=== PATIENT | male | born 1940 | race Caucasian/White ===

== ENCOUNTER 2023-12-24 11:06 | Emergency (ER) | payer MEDICARE, BC ==
[~2023-12-24] VITALS: Ht 188 cm; Wt 89.8 kg
[2023-12-24 11:07] VITALS: TEMP 97.7
[2023-12-24] MEDS ORDERED: ALLO100T PO (11:32)
[2023-12-24] MEDS ORDERED: DONE-1 PO (11:33)
[2023-12-24] MEDS ORDERED: ROSU5TAB40 PO (11:33)
[2023-12-24] MEDS ORDERED: RIVA1CAP5 PO (11:34)
[2023-12-24] MEDS: diazePAM 10 MG TAB PO ONE (15:32)
[2023-12-24] MEDS: IBUPROFEN 600MG TAB PO ONE (15:32)
[2023-12-24] MEDS ORDERED: ISOVUE-370 76% 100ML VIAL As Ordered ONE (16:02)
[2023-12-24 16:28] LABS: HEMATOCRIT 42.7 % (42.0-52.0); HEMOGLOBIN 14.1 g/dl (13.5-17.5); MEAN CORPUSCULAR HEMOGLOBIN 30.8 pg (27.0-33.0); MEAN CORPUSCULAR VOLUME 93.2 fl (80.0-96.0); PLATELET COUNT, AUTOMATED 288 10^3/uL (150-450); RED BLOOD COUNT 4.58 10^6/uL (4.30-6.10); WHITE BLOOD COUNT 10.2 10^3/uL (4.0-10.0)
[2023-12-24 16:35] LABS: BLOOD UREA NITROGEN 16 MG/DL (9-23); CARBON DIOXIDE LEVEL 30 MMOL/L (20-31); CHLORIDE LEVEL 104 MMOL/L (98-107); CREATININE FOR GFR 1.03 MG/DL (0.70-1.30); GLOMERULAR FILTRATION RATE > 60.0 (>35); GLUCOSE, FASTING 111 MG/DL (74-106); SODIUM LEVEL 139 MMOL/L (136-145)
[2023-12-24] MEDS ORDERED: CYCL5TAB PO (17:25)
[2023-12-24] MEDS ORDERED: IBUP-1022 PO (17:25)
[2023-12-24 17:39] VITALS: BP 125/87; O2SAT 99
== END 2023-12-24 17:40 | disposition home or self-care (01) ==
LOC: M ED 11:06
DX: M43.6 Torticollis (principal); M50.30 Other cervical disc degeneration, unspecified cervical region
CPT/HCPCS: 70491; 80047; 80048; 85027; 86618; 87486; 87581; 87633; 87798; 99284; Q9967